=== PATIENT | male | born 1985 | race Caucasian/White ===

== ENCOUNTER 2023-08-09 15:40 | Emergency (ER) | payer MEDICAID, SELFPAY ==
[2023-08-09 15:41] VITALS: BP 125/92; PULSE 80; RESP 16; TEMP 36.1; O2SAT 100; BMI 19.9
--- NOTE | 2023-08-09 16:39 | ED.RN ---
PT RESTLESS IN WAITING AREA. CONTINUES TO DENIES THE DIZZINESS OR ANY SX AT PRESENT.
--- NOTE | 2023-08-09 17:17 | EX.ED.DYSGE1 ---
HPI History of Present Illness Chief Complaint: Dizziness Detail of Chief Complaint: Intermittent vertigo Informant: patient Onset/Context/Timing Onset: Days Context: Sudden Onset Timing: Intermittent Quality: Room spinning with nausea and vomiting Location: residential Current Severity: Gone Maximum Severity: Severe Worsened by: Change in position Relieved by: Remaining still Associated Symptoms Associated Symptoms: Nausea and vomiting Narrative Narrative: Patient is a 38-year-old male with history of rheumatoid arthritis who presents with intermittent positional vertigo. He has known history of vertigo. He presently denies any symptoms. He denies headache, visual, ocular auditory symptoms. Eyes pena ears decreased hearing. He denies trouble with speech or swallowing. He denies chest pain, shortness of breath, dyspnea on exertion, orthopnea or PND. He denies cough or upper respiratory tract infectious symptoms. He denies abdominal pain or diarrhea. Nuys black or maroon-colored stool. He denies orthostatic symptoms. He does report nausea and vomiting with vertigo. He had 3 episodes yesterday. He denies paresthesia, anesthesia or motor weakness. He denies problems with speech or swallowing. Prior similar symptoms: Yes Recent Illness/Hospitalization: No PFSH PFSH Home Medications meclizine 25 mg chewable tablet (Bonine) 25 mg PO TID PRN dizziness #30 tabs 08/09/23 [Rx Last Taken Unknown] Social History (Updated 08/09/23 @ 17:[address] Scooby Xiao MD) household members: none housing: other details: residential, relocated from [place] Smoking Status: Never smoker substance use type: does not use ROS ROS ED Constitutional Constitutional ED: Denies chills, fever(s), subjective or sweats Eyes Eyes: Denies blurry vision or change in vision ENT ENT ED: Denies rhinorrhea or sore throat Cardiovascular Cardiovascular: Denies chest pain or palpitations Respiratory/Chest Respiratory/Chest: Denies cough, dyspnea or dyspnea on exertion Gastrointestinal Gastrointestinal: Reports nausea and vomiting; Denies abdominal pain, diarrhea or melena Genitourinary Genitourinary ED: Denies dysuria or urinary frequency Musculoskeletal Musculoskeletal: Reports arthralgias and other Details: Patient reports history of rheumatoid arthritis. He asked for referral to [facility]. Integumentary Denies rash Neurologic Neurologic: Reports other Details: Vertigo, floor spinning with change in position ; Denies headache(s), paresthesias or weakness Psychiatric Psychiatric: Denies anxiety Endocrine Endocrinology: Denies cold intolerance or heat intolerance Hematologic/Lymphatic Hematologic/Lymphatic: Reports systems reviewed and no addt'l complaints, except as documented Allergic/Immunologic Allergic/Immunologic ED: Denies mouth swelling or tongue swelling EXAM Physical Exam Const Vital Signs: 08/09/23 15:41 08/09/23 16:53 Temperature 97.0 F L Temperature Source Temporal Pulse Rate 80 Respiratory Rate 16 Respiratory Effort Normal Respiratory Pattern Normal Blood Pressure 125/92 H Blood Pressure Mean 103 Pulse Ox 100 Oxygen Delivery Method Room Air Positive well nourished and well developed Constitutional Narrative: Patient is not well-groomed. He has odor. General Appearance ED: well developed and NAD; Negative for cyanotic, diaphoretic or pallor HEENT Reports moist mucous membranes HEENT Narrative: Poor dentition with periodontal disease and gingivitis. Uvula midline. No deviation tongue with protrusion. Eyes PERRL and EOMs intact bilaterally Eyes Narrative: There is no visual field cut.There is no nystagmus. General Eye ED: Negative for pale conjunctiva or scleral icterus Neck no lymphadenopathy, supple and no JVD Chest Wall inspection of chest normal and palpation of chest normal Resp normal respiratory effort and clear to auscultation bilaterally Cardio regular rate, regular rhythm, S1 normal heart sound, S2 normal heart sound and no murmurs GI normal to inspection, nondistended, normoactive bowel sounds, non-tender, non-distended and no masses; Negative for hepatosplenomegaly GI Narrative: Patient is wearing a diaper. Back/Spine no CVA tenderness Cervical Spine: Negative for cervical spine tenderness Thoracic Spine / Upper Back: Negative for thoracic spinal tenderness Lumbar Spine / Lower Back: Negative for lumbar spinal tenderness Extremity normal to inspection Extremity Narrative: Distal pulses upper and lower extremity are 2+. General Extremety ED: Negative for edema or tenderness General Extremity: Negative for edema Neuro CN's II-XII intact bilaterally and no sensory deficits noted Neuro Narrative: There is no dysmetria. Gait observed and normal. Tandem gait is normal. Romberg with eyes open and closes normal. The eye askew test and the hint test were both negative. [place]-Hallpike maneuver was negative. Patient presently has no symptoms. Sensorium / Orientation: alert Motor Exam: strength 5/5 throughout Psych Psych Narrative: Patient has an unusual affect. Skin no rashes or lesions noted, no wounds and skin turgor normal General Skin Exam: elasticity normal; Negative for jaundice or pallor MDM MDM MDM Narrative Medical decision making narrative: Patient's symptoms are consistent with benign paroxysmal positional vertigo. With him having no symptoms at this point we will prescribe Antivert in the event that he has recurrent symptoms. He was referred to Dr. Yves Farmer since he relocated from [place] has no local physician. Discharge Plan Triage Chief Complaint: Dizziness ED Provider: Scooby Xiao Dx/Rx/DC Orders Clinical Impression: Benign paroxysmal positional vertigo Instructions: ED BPV Vertigo Prescriptions: New meclizine [Bonine] 25 mg tablet,chewable 25 mg PO TID PRN (Reason: dizziness) Qty: 30 0RF Primary Care Provider: Wesley Newsome,Out of Referrals: Yves Farmer MD [Med Staff - Active Staff] - 1-2 Weeks Wesley Newsome,Out of [Primary Care Provider] - Disposition Disposition: Home, Self Care
== END 2023-08-09 17:32 | disposition home or self-care (01) ==
PROVIDERS: Emergency Provider Emergency Medicine; Visit Provider Emergency Medicine
DX: H81.10 Benign paroxysmal vertigo, unspecified ear (principal); R11.2 Nausea with vomiting, unspecified
CPT/HCPCS: 99282